=== PATIENT | male | born 1985 | race Caucasian/White ===

== ENCOUNTER 2016-12-13 04:02 | Emergency (ER) | payer SELFPAY ==
[2016-12-13 05:36] LABS: HEMOGLOBIN 15.5 gm/dl (14.0-17.5); RED BLOOD COUNT 5.8 M/UL (4.20-5.50); WHITE BLOOD COUNT 16.9 K/UL (4.5-11.0)
[2016-12-13 06:07] LABS: BUN/CREATININE RATIO 10 (0-10)
== END 2016-12-13 06:55 | disposition home or self-care (01) ==
LOC: ER1 04:02
PROVIDERS: Physician Assistant
DX: S81.812A Laceration without foreign body, left lower leg, initial encounter (principal); S46.912A Strain of unspecified muscle, fascia and tendon at shoulder and upper arm level, left arm, initial encounter; F17.210 Nicotine dependence, cigarettes, uncomplicated; E11.9 Type 2 diabetes mellitus without complications; G47.30 Sleep apnea, unspecified; V49.59XA Passenger injured in collision with other motor vehicles in traffic accident, initial encounter
CPT/HCPCS: 12032; 36415; 70450; 71010; 72125; 73030; 73590; 80053; 83690; 85025; 96361; 96374; 96375; 99284; G0480; J0690; J2405; J7050